=== PATIENT | male | born 1995 | race Caucasian/White ===

== ENCOUNTER 2016-12-06 14:40 | Emergency (ER) | payer OTHER ==
[2016-12-06] MEDS ORDERED: SODIUM CHLORIDE 0.9% 2,000 ML ONE (15:11)
[2016-12-06] MEDS ORDERED: MULTIVITS ADULT INJ 10 ML, THIAMINE 100 MG, FOLIC ACID INJ 1 MG in SODIUM CHLORIDE 0.9%... IV ONE ×3 (16:10)
== END 2016-12-06 18:50 | disposition home or self-care (01) ==
LOC: ER 15:33
DX: Z02.89 Encounter for other administrative examinations (principal); F10.129 Alcohol abuse with intoxication, unspecified
CPT/HCPCS: 36415; 80053; 80307; 80320; 80329; 81003; 84439; 84443; 85025; 85610; 96361; 96365; 96366